=== PATIENT | female | born 1950 | race Caucasian/White ===

== ENCOUNTER 2017-05-15 19:28 | Inpatient (IN) | payer MEDICARE, MEDICAID ==
[~2017-05-15 19:28] MED LIST: ISOVUE-370 76%-LOCM 1 ML ONE
[2017-05-15 21:02] LABS: #Basophils 0.1 thou/uL (0.0-0.2); #Eosinphils 0.1 thou/uL (0.0-0.7); #Lymphocytes 3.5 thou/uL (1.20-3.40); #Monocytes 0.6 thou/uL (0.11-0.59); %Basophils 0.7 % (0.0-1.0); %Eosinophils 0.8 % (0.0-10.0); %Lymphocytes 31.4 % (21.0-51.0); %Monocytes 4.9 % (0.0-10.0); Hematocrit 40.9 % (36.0-47.0); Red Blood Cell (RBC) Count 4.51 mill/uL (4.20-5.40); White Blood Cell (WBC) Count 11.3 thou/uL (4.8-10.8)
[2017-05-15 21:09] LABS: Bilirubin Negative (Negative); Blood, Urine Negative (Negative); Glucose, Urine (Dipstick) Negative (Negative); Ketone, Urine Negative (Negative); Nitrite Negative (Negative); Protein, Urine (Dipstick) Negative (Neg-Trace); Urobilinogen 0.2 mg/dL (0.2-1.0)
[2017-05-15 21:09] LABS: PTT 27.8 SEC (22.9-36.1); Prothrombin Time 13.3 SEC (12.0-14.7)
[2017-05-15 21:11] LABS: Bacteria/HPF None Seen HPF (None Seen); Hyaline Casts/LPF 0-3 HYALINE CAST LPF (0-3 Hyaline); RBC/HPF None Seen HPF (0-3); Squamous Epithelial 0-3 HPF (0-3); WBC/HPF 0-3 HPF (0-3)
[2017-05-15 21:18] LABS: Lactic Acid - Sepsis 1.1 mmol/L (0.5-2.2)
[2017-05-15 21:22] LABS: Acetaminophen Less than 6.0 mcg/mL (10.0-30.0); Salicylate Less than 8.0 mg/dL (15.0-30.0)
[2017-05-15 21:24] LABS: ALT (SGPT) 16 U/L (8-55); AST (SGOT) 20 U/L (5-34); Alkaline Phosphatase 93 U/L (40-150); Anion Gap 12 mmol/L (10-20); BUN (Urea Nitrogen) 12 mg/dL (9.8-20.1); Bilirubin, Total 0.3 mg/dL (0.2-1.2); Calc. Creatinine Clearance 0 mL/min (70-130); Calcium 9.7 mg/dL (7.8-10.44); Carbon Dioxide 26 mmol/L (23-31); Chloride 106 mmol/L (98-107); Estimated GFR-MDRD 65; Globulin 3.4 g/dL (2.4-3.5); Protein, Total 7.4 g/dL (6.0-8.3)
[2017-05-15 21:24] LABS: Amphetamine Not Detected (NotDetected); Methadone Not Detected (NotDetected); Methamphetamine Not Detected (NotDetected)
[2017-05-15 21:28] LABS: Troponin I 0.011 ng/mL (< 0.028)
--- NOTE | 2017-05-15 22:37 | CT ---
CT ANGIOGRAM BRAIN WITH IV CONTRAST AND 3D MIP RECONSTRUCTIONS CT PERFUSION 05/15/17 PROVIDED CLINICAL HISTORY: Left sided facial numbness and aphasia. FINDINGS: There is no evidence for focal vessel stenoses, branch occlusion or aneurysm. There is a somewhat [place] of vessels in the terminal aspects of the left MCA distribution. However, the perfusion images a ppear normal. There is no evidence on the perfusion study. IMPRESSION: 1. No evidence for focal vessel stenosis or branch occlusion involving the proximal aspects of t he intracranial arterial structures. 2. No CT perfusion abnormality to suggest a territorial area of ischemia or infarction. POS: [facility]
[2017-05-15] MEDS ORDERED: Ondansetron HCl/PF 4 MG/2 ML Vial IVP PRN (23:52)
[2017-05-15] MEDS ORDERED: Ondansetron ODT 4 MG TAB SL PRN (23:52)
[2017-05-15] MEDS ORDERED: Acetaminophen 325 MG TAB PO PRN (23:52)
[2017-05-16] MEDS ORDERED: Acetaminophen 650 MG Suppository PR PRN (02:21)
[2017-05-16] MEDS ORDERED: Bisacodyl 5 MG TAB PO PRN (02:21)
[2017-05-16] MEDS ORDERED: Acetaminophen 325 MG TAB PO PRN (02:21)
[2017-05-16] MEDS ORDERED: niCARdipine 20MG in NaCl 200 ML BAG IVPB PRN (02:23)
[2017-05-16] MEDS ORDERED: Labetalol HCl 100 MG/20 ML VIAL SLOW IVP PRN (02:23)
[2017-05-16] MEDS ORDERED: niCARdipine HCl 25 MG in Sodium Chloride 0.9% 250 ML 240 ML IVPB PRN (02:41)
--- NOTE | 2017-05-16 03:23 | HP ---
PRIMARY CARE PHYSICIAN: Dr. Lu Sanchez. CHIEF COMPLAINT: Weakness. HISTORY OF PRESENT ILLNESS: Ms. Coughlin is a pleasant 67-year-old lady, who was seen at [facility] on 05/16/2017. She is currently aphasic, unable to provide any history or review of systems. History was obtained f rom review of the medical record as well as from discussion with emergency room physician. She was with family member at [facility] at 1715 hours yesterday. At that time, she developed left-side d facial numbness. Her speech also changed, and the family member was unable to understand what the patient was saying. She was taken to the emergency room at [facility]. She did not receive tPA th [facility] because it was felt that there was no clear diagnosis of stroke. She was subsequently transferre d to [facility]. She was found to have left upper extremity weakness as well as aphasia. She will receive tPA. She continues to be aphasic, but is now able to move her left upp er extremity. REVIEW OF SYSTEMS: Could not be completed because patient is unable to speak. PAST MEDICAL HISTORY: Significant for coronary artery disease, myocardial infarction, hypertension, anxiety, depression, and obstructive sleep apnea syndrome. PAST SURGICAL HISTORY: Significant for coronary artery bypass graft in 1996, coronary stent in 2003, hysterectomy, and sessile polyps on colonoscopy in 06/2015. ALLERGIES: No known drug allergies. SOCIAL HISTORY: She lives with family. No history of tobacco use, alcohol use, or recreational drug use. FAMILY HISTORY: Her father from prostate cancer. Mother from Alzheimer's disease. CURRENT MEDICATIONS: These need to be clarified. CODE STATUS: I discussed the code status with her son. He will discuss with rest of the family and let the medical team know. He knows that she is presumed FULL CODE at this time. PHYSICAL EXAMINATION: GENERAL: Ms. Coughlin is sleepy, but arousable, not in acute distress. VITAL SIGNS: Blood pressure is 151/68, pulse is 87. She is breathing at rate of 20 and saturating 9 7% on room air. She is afebrile. EYES: No scleral icterus. No conjunctival pallor. ENT: Moist mucosal membranes, no oropharyngeal erythema or exudates. NECK: Supple, nontender, normal range of movement, trachea is midline. RESPIRATORY: Accessory muscles of breathing are not active. Chest wall movements are symmetric bila terally. Lungs are clear to auscultation without wheeze, rhonchi, or crepitations. CARDIOVASCULAR: S1 and S2 are heard, regular. Peripheral pulses are palpable. No carotid bruit, no pericardial rub. ABDOMEN: Soft, nontender, bowel sounds heard, no hepatomegaly, no splenomegaly. NEUROLOGIC: She has a mild left facial droop. Power is 4+/5 in all 4 extremities. Pupils are equal and reactive bilaterally to light. Deep tendon reflexes are 2+. Plantar reflexes downgoing bilater ally. MUSCULOSKELETAL: Power in the four extremities 4+/5. SKIN: No rashes or subcutaneous nodules. PSYCHIATRIC: Normal mood, the patient is oriented to person, unable to assess orientation to place o r time. LYMPHATIC: No cervical lymphadenopathy. LABORATORY DATA: Ms. Coughlin's labs and investigations were reviewed. I reviewed her electrocardiogra m, which shows normal sinus rhythm, no ST changes to suggest an acute coronary syndrome. I also revi ewed her chest x-ray, which does not show any pulmonary infiltrates. CT scan of the brain done witho ut contrast did not reveal any evidence of intracranial hemorrhage or mass effect. CT angiogram of t head and neck with brain perfusion did not reveal any evidence for focal vessel stenosis or branch occlusion involving the proximal aspects of the intracranial arterial structures. There was no CT p erfusion abnormality to suggest a territorial area of ischemia or infarction. Laboratory investigati on showed leukocytosis with 11,300 white cells, of which 62.3% are neutrophils, normal hemoglobin, no rmal platelet count, INR 1.0, normal comprehensive metabolic profile, normal troponin I, urinalysis t hat is positive for trace leukocyte esterase and urine toxicology screen that is unremarkable. ASSESSMENT AND PLAN: Ms. Coughlin is a pleasant 67-year-old lady, who was seen at [facility] on 05/16/2017. Her problem list includes: 1. Acute ischemic cerebrovascular accident. She presented clinically with ischemic cerebrovascular accident. She has received tPA, with improvement of some of her symptoms. However, she continues to be aphasic. She will be monitored in the critical care unit for now. Neurology service will be con sulted. MRI of the brain, 2D echocardiogram are being ordered. I will start aspirin 24 hours after tPA administration. 2. Hypertension: We will start patient on p.r.n. Cardene drip as well as p.r.n. labetalol. 3. Coronary artery disease: Appears to be stable. 4. Obstructive sleep apnea syndrome: Appears to be stable. Many thanks for allowing me to participate in your patient's care. Please feel free to contact me wi th any questions or concerns. LEVEL OF RISK: High. LEVEL OF COMPLEXITY: High.
[2017-05-16] MEDS ORDERED: Acetaminophen 1,000 MG in Premix Bag 1 BAG IVPB SCH (03:30)
[2017-05-16] MEDS ORDERED: levETIRAcetam In NaCl (Iso-Os) 1,500 MG in Premix Bag 1 BAG IVPB SCH ×2 (08:45)
[2017-05-16] MEDS ORDERED: FLU VACC TS2017-18 (>65YR) 0.5 ML SYRINGE IM ONE (09:00)
--- NOTE | 2017-05-16 09:10 | CON ---
DATE OF CONSULTATION: 05/16/2017 CONSULTING PHYSICIAN: Hospitalist Service IMPRESSION: Speech arrest secondary to either ischemic event or subclinical seizure activity. PLAN: 1. MRI of the brain. 2. Keppra 1500 mg IV load. Ms. Coughlin is a 67-year-old female with a past history of coronary disease, hypertension, CHF, myocard ial infarction, dyslipidemia, and sleep apnea who presented with difficulty speaking. She had a CTA which did not reveal any evidence of perfusion defect or major vessel occlusion. She was given t-PA last night, her symptoms have persisted. PAST MEDICAL HISTORY: As listed above. ALLERGIES: None. SOCIAL HISTORY: Unknown. FAMILY HISTORY: Unknown. REVIEW OF SYSTEMS: Not obtainable. PHYSICAL EXAMINATION: GENERAL: She is a slightly overweight, elderly lady lying in bed in no distress. VITAL SIGNS: Blood pressure 112/46, pulse 86, saturations 100%. HEENT: Pupils equal and reactive. Conjunctivae clear. Oropharynx clear. NECK: Supple. EXTREMITIES: No cyanosis. NEUROLOGIC: She appears to be awake and attentive to what is going on around her, but she does not s peak whatsoever. She would follow some commands partially. Cranial nerve exam did not show any faci al asymmetry. Motor exam showed antigravity strength in both arms. The tone appeared to be symmetri c on both sides. Plantar responses were downgoing. Gait was not testable. No abnormal movements we re seen. LABORATORY STUDIES: Unremarkable CBC, coags, serum chemistry, urinalysis and toxicology screen. IMAGING: Imaging was reviewed. SUMMARY: A 67-year-old woman who presents with speech arrest and nothing focal on exam. We will see what further imaging reveals.
--- NOTE | 2017-05-16 10:33 | MRI ---
MRI BRAIN WITHOUT CONTRAST: Date: 05/16/17 HISTORY: Left-sided facial numbness. FINDINGS: Correlation is made with the CT and CTA of previous day. No restricted diffusion is seen. There are a few foci of T2 prolongation in the periventricular white matter consistent with mild chronic small vessel ischemic disease. No evidence of infarction, hemorr pradip, or midline shift is seen. The ventricular size is appropriate and the basilar cisterns are dick nt. There is mucosal disease in the paranasal sinuses. IMPRESSION: No evidence of acute intracranial process. POS: [facility]
[2017-05-16] MEDS: Dextrose 5 %-0.45 % NaCl 1,000 ML IV SCH ×2 (12:42→20:37)
--- NOTE | 2017-05-16 13:51 | PDOC.PN ---
- Subjective Encounter Start Date: 05/16/17 Encounter Start Time: 13:49 Patient seen at bedside. No overnight events, no new complaints. Answering questions but slow to answer and follow commands. - Objective MAR Reviewed: Yes Vital Signs & Weight: Vital Signs (12 hours) Temp Pulse Pulse Pulse Resp BP BP 05/16/17 11:00 98.3 F 05/16/17 09:39 70 73 102/46 L 134/38 L 05/16/17 08:47 05/16/17 07:31 98.2 F 71 14 05/16/17 07:00 98.2 F 05/16/17 04:00 98.4 F Pulse Ox Pulse Ox Pulse Ox 05/16/17 11:00 05/16/17 09:39 100 100 05/16/17 08:47 98 05/16/17 07:31 99 05/16/17 07:00 05/16/17 04:00 Weight Admit Weight 209 lb Weight 209 lb 10.554 oz Most Recent Monitor Data Heart Rate from ECG 72 NIBP 121/46 NIBP BP-Mean 85 Respiration from ECG 15 SpO2 99 I&O: 05/15/17 05/16/17 05/17/17 06:59 06:59 06:59 Intake Total 115 100 Output Total 0 330 Balance 115 -230 Result Diagrams: 05/15/17 20:48 05/15/17 20:48 Phys Exam - Physical Examination Constitutional: NAD HEENT: PERRLA, moist MMs Neck: no nodes Respiratory: clear to auscultation bilateral Cardiovascular: RRR Gastrointestinal: soft Musculoskeletal: pulses present muscle tone intact, no focal deficits, answers appropriately but slowly Psychiatric: A&O x 3 Dx/Plan (1) CVA (cerebral vascular accident) Code(s): I63.9 - CEREBRAL INFARCTION, UNSPECIFIED Status: Suspected Qualifiers: CVA mechanism: unspecified Qualified Code(s): I63.9 - Cerebral infarction, unspecified (2) Seizure Code(s): R56.9 - UNSPECIFIED CONVULSIONS Status: Suspected (3) Hyperlipidemia Code(s): E78.5 - HYPERLIPIDEMIA, UNSPECIFIED Status: Chronic (4) Hypertension Code(s): I10 - ESSENTIAL (PRIMARY) HYPERTENSION Status: Chronic (5) CAD (coronary artery disease) Code(s): I25.10 - ATHSCL HEART DISEASE OF [place] CORONARY ARTERY W/O ANG PCTRS Status: Chronic - Plan cont current plan of care, plan discussed w/ family, joe catheter, licensed master social worker, DVT proph w/SCDs * ASA MI once TPA window completed. * Appreciate neurology input ( Ren Loaded for possible subclinical seizure) * EEG (Await results) * Speech therapy evaluation * Supportive Care * Start IV fluids.
--- NOTE | 2017-05-16 21:33 | CON ---
DATE OF CONSULTATION: 05/16/2017 History: Ms. Coughlin is a 67-year-old female. She speaks very slowly, softly, and deliberately. I am told that by the interviews with the nursing staff that she was aphasic when she came in. Apparentl y, she was at [facility] yesterday afternoon and developed facial numbness, change in her speech. The f charlottey reported that they were unable to understand what she was saying. She was transferred to [facility]. It was felt that clinically, she most likely had had a c erebrovascular accident. She was given tPA. Imaging has not shown any evidence of thrombotic cerebr ovascular accident. She has got some mild chronic small vessel ischemic changes on her MRI, but nothing else that was pat hologically abnormal. She had a CTA with brain perfusion that did not show any obstruction. She was admitted to the Critical Care Unit. She is spontaneously moving all of her extremities now a nd weakly following commands also slowly and weakly answering questions. She has no past history of seizure disorder, mental illness. She denies having febrile illness leading up to this. There was no fever when reported here. PAST MEDICAL HISTORY: Remarkable for coronary artery disease, myocardial infarction, anxiety, depres rodri, hypertension, sleep apnea, history of coronary artery bypass grafting 20 years ago, history of coronary stenting in 2003, history of a hysterectomy, and a polypectomy in the past. SOCIAL HISTORY: Non-smoker. Non-drinker. She does not use drugs. ALLERGIES: She has no allergies. FAMILY HISTORY: Positive for cancer and dementia. She has no history of lung disease at an early ag e. MEDICATIONS: Medications have been reviewed. She is currently receiving aspirin SC per day, IV flui ds, Keppra, nicardipine. She is not on DVT prophylaxis. REVIEW OF SYSTEMS: Not quickly obtainable from her report. Review of systems was otherwise negative per the nursing staff and family. PHYSICAL EXAMINATION: GENERAL: She is afebrile, heart rate 74, blood pressure 130/54, respiratory rate is in the teens. HEENT: Pupils are reactive. Sclerae are anicteric. She will slowly open her eyes. NECK: She will flex her neck and get her chin to her chest. She denies having neck pain with that. She has no cervical lymphadenopathy. LUNGS: Clear. HEART: Regular rhythm. She has a grade 1 to 2/6 systolic murmur. ABDOMEN: Soft and nontender. EXTREMITIES: Without asymmetry. She really does not cooperate well with the strength exam. She is supine in bed. LABORATORY DATA: White count 11.3, hemoglobin 13.5, platelets 248. Sodium 140, potassium 3.9, chloride 106, bicarbonate 26, BUN 12, creatinine 0.87, glucose 97, calcium is 9.7, bilirubin is normal. AST, ALT were normal. Alkaline phosphatase 93. Troponins 0.011. Alb umin is 4.0. IMPRESSION: Constellation of symptoms is not really suggestive of a structural brain abnormality or a thrombotic event. EEG was being done as I was finishing my exam. We will see what this shows. It is atypical for a seizure disorder. There is nothing to make me believe she has meningitis or encephalitis. She does not appear to be in any possible ingestion issues. I will be happy to follow with the other physicians caring for her while she is in the ICU. Critical care time 35 minutes. Greater than 50% of the time was consistent reviewing records in conf erring with staff that was available. There is no family available at this time.
[2017-05-17 04:07] LABS: #Basophils 0.1 thou/uL (0.0-0.2); #Eosinphils 0.2 thou/uL (0.0-0.7); #Lymphocytes 3.4 thou/uL (1.20-3.40); #Monocytes 0.6 thou/uL (0.11-0.59); #Neutrophils 4.2 thou/uL (1.40-6.50); %Basophils 0.9 % (0.0-1.0); %Eosinophils 2.5 % (0.0-10.0); %Lymphocytes 39.7 % (21.0-51.0); %Monocytes 6.9 % (0.0-10.0); Red Blood Cell (RBC) Count 4.13 mill/uL (4.20-5.40); White Blood Cell (WBC) Count 8.5 thou/uL (4.8-10.8)
[2017-05-17 04:30] LABS: Anion Gap 9 mmol/L (10-20); BUN (Urea Nitrogen) 10 mg/dL (9.8-20.1); Calc. Creatinine Clearance 108 mL/min (70-130); Calcium 9.2 mg/dL (7.8-10.44); Carbon Dioxide 28 mmol/L (23-31); Chloride 106 mmol/L (98-107); Cholesterol 141 mg/dl (< 200 Desired); Estimated GFR-MDRD 75; LDL Cholesterol, Calculated 79 mg/dL
[2017-05-17] MEDS: Dextrose 5 %-0.45 % NaCl 1,000 ML IV SCH ×3 (04:48→20:26)
[2017-05-17] MEDS: Aspirin 300 MG Suppository PR SCH (08:53)
[2017-05-17] MEDS ORDERED: Aspirin 325 mg Enteric Coated Tablet PO SCH (09:00)
--- NOTE | 2017-05-17 11:58 | CON ---
DATE OF CONSULTATION: 05/17/2017 HISTORY OF PRESENT ILLNESS: Ms. Coughlin had an uneventful night. She started speaking sometime yester day. She had an EEG done in the midst of her episode of aphasia which was unremarkable. Her MRI of the brain did not reveal any evidence of acute ischemic changes. She apparently has a history of apolinar rly significant depression. She has been through ECT in the past. This morning, she would talk in a whisper. Her exam was otherwise nonfocal. It appears that this was somatization event without any evidence of underlying pathology. Patient ca n be transferred out of the Intensive Care Unit and should probably have follow up with the psychiatr ist.
--- NOTE | 2017-05-17 13:45 | PRG ---
DATE OF SERVICE: 05/17/2017 SUBJECTIVE: Ms. Coughlin remains with stable vital signs. PHYSICAL EXAMINATION: VITAL SIGNS: She is afebrile. Heart rate is in the 90s, blood pressure 132/64, respiratory rate 18. EXTREMITIES: She moves all extremities to command. LUNGS: Clear. HEART: Regular rhythm. ABDOMEN: Soft. When I entered the room, she started out with very weak voice. As I interviewed her two boys, her vo ice got louder and louder. It turns out, Ms. Coughlin has had electroshock therapy in the 80s. She avelar s a long history of depression and very quickly told me she has been depressed her whole life. She a lso told me that if she had not had electroshock therapy, she would not be alive now. There are apparently some enormous stresses created by a daughter and she also takes care of a disabl ed son. The more I talked to the family, the more I feel that this is likely a conversion disorder. LABORATORY DATA: White count is 8.5, hemoglobin 12.5, platelets 228. Electrolytes are normal. I do not feel a lumbar puncture is indicated. I believe she can be transferred to a medical bed and begin ambulating.
--- NOTE | 2017-05-17 15:28 | PDOC.PN ---
- Subjective Encounter Start Date: 05/17/17 Encounter Start Time: 11:00 Pt seen for followup re: ischemic CVA. Awake, alert, sitting in chair. Answering questions. No chest pain or shortness of breath. Speaking in low voice. - Objective MAR Reviewed: Yes Vital Signs & Weight: Vital Signs (12 hours) Temp Pulse Resp BP Pulse Ox 05/17/17 13:12 97.3 F L 86 18 96 05/17/17 12:50 97.3 F L 86 18 165/77 H 96 05/17/17 11:00 98.6 F 05/17/17 07:39 98.5 F 68 17 98 05/17/17 07:00 98.5 F Weight Admit Weight 209 lb Weight 211 lb 6.773 oz Most Recent Monitor Data Heart Rate from ECG 79 NIBP 130/39 NIBP BP-Mean 65 Respiration from ECG 20 SpO2 100 I&O: 05/16/17 05/17/17 05/18/17 06:59 06:59 06:59 Intake Total 115 2041 360 Output Total 0 1835 565 Balance 115 206 -205 Result Diagrams: 05/17/17 03:22 05/17/17 03:22 Phys Exam - Physical Examination Obese HEENT: moist MMs Neck: supple Respiratory: clear to auscultation bilateral Cardiovascular: RRR Gastrointestinal: soft Neurological: moves all 4 limbs Psychiatric: normal affect Deviation from normal: oriented to person and place, not to time Skin: no rash Dx/Plan (1) Ischemic cerebrovascular accident (CVA) Code(s): I63.9 - CEREBRAL INFARCTION, UNSPECIFIED Status: Acute Comment: vs somatization (2) Hyperlipidemia Code(s): E78.5 - HYPERLIPIDEMIA, UNSPECIFIED Status: Chronic (3) Hypertension Code(s): I10 - ESSENTIAL (PRIMARY) HYPERTENSION Status: Chronic (4) CAD (coronary artery disease) Code(s): I25.10 - ATHSCL HEART DISEASE OF [place] CORONARY ARTERY W/O ANG PCTRS Status: Chronic - Plan PT/OT, out of bed/ambulate * . Ambulate pt. probable somatization event. monitor vital signs, titrate antihypertensives as needed. transfer to medical floor. Review of Systems - Review of Systems Respiratory: negative: Cough, Dry, Shortness of Breath, Hemoptysis, SOB with Excertion, Pleuritic Pain, Sputum, Wheezing Cardiovascular: negative: chest pain, palpitations, orthopnea, paroxysmal nocturnal dyspnea, edema, light headedness - Medications/Allergies Allergies/Adverse Reactions: Allergies Allergy/AdvReac Type Severity Reaction Status Date / Time No Known Drug Allergies Allergy Verified 05/16/17 01:17 Medications: Current Medications Acetaminophen (Tylenol) 650 mg MN Q4H PRN PRN Reason: Headache/Fever or Pain Last Admin: 05/16/17 12:46 Dose: 650 mg Acetaminophen (Tylenol) 650 mg PO Q4H PRN PRN Reason: Headache/Fever or Pain Aspirin (Aspirin) 300 mg MN DAILY [facility] Last Admin: 05/17/17 08:53 Dose: 300 mg Bisacodyl (Dulcolax) 10 mg PO DAILYPRN PRN PRN Reason: Constipation Dextrose/Sodium Chloride (D5 1/2 Ns) 1,000 mls @ 120 mls/hr IV .Q8H20M [facility] Last Admin: 05/17/17 13:31 Dose: 1,000 mls Labetalol HCl (Normodyne) 10 mg SLOW IVP Q2H PRN PRN Reason: SBP > 180
[2017-05-18] MEDS: Dextrose 5 %-0.45 % NaCl 1,000 ML IV SCH (05:10)
[2017-05-18 05:26] LABS: #Basophils 0.1 thou/uL (0.0-0.2); #Eosinphils 0.2 thou/uL (0.0-0.7); #Lymphocytes 3.5 thou/uL (1.20-3.40); #Monocytes 0.6 thou/uL (0.11-0.59); #Neutrophils 3.6 thou/uL (1.40-6.50); %Eosinophils 2.5 % (0.0-10.0); %Lymphocytes 44.2 % (21.0-51.0); %Monocytes 6.9 % (0.0-10.0); Hematocrit 38.1 % (36.0-47.0); Mean Platelet Volume 8.1 fL (7.4-10.4); Red Blood Cell (RBC) Count 4.12 mill/uL (4.20-5.40); White Blood Cell (WBC) Count 7.9 thou/uL (4.8-10.8)
[2017-05-18 05:45] LABS: Anion Gap 10 mmol/L (10-20); BUN (Urea Nitrogen) 6 mg/dL (9.8-20.1); Calc. Creatinine Clearance 120 mL/min (70-130); Calcium 8.8 mg/dL (7.8-10.44); Carbon Dioxide 23 mmol/L (23-31); Chloride 109 mmol/L (98-107); Estimated GFR-MDRD 82
[2017-05-18] MEDS: Aspirin 300 MG Suppository PR SCH (08:51)
[2017-05-18 10:03] VITALS: BMI 33.5
--- NOTE | 2017-05-18 14:08 | PDOC.PN ---
- Subjective Encounter Start Date: 05/18/17 Encounter Start Time: 10:20 Pt seen for followup re: weakness. Speaking in low voice, says she feels better. - Objective Vital Signs & Weight: Vital Signs (12 hours) Temp Pulse Resp BP Pulse Ox 05/18/17 11:33 98 F 67 16 126/73 95 05/18/17 08:00 98.2 F 72 16 05/18/17 07:39 98.2 F 72 16 153/75 H 95 05/18/17 04:00 97.6 F 66 16 131/76 95 Weight Admit Weight 209 lb Weight 214 lb 6.4 oz Most Recent Monitor Data Heart Rate from ECG 79 NIBP 130/39 NIBP BP-Mean 65 Respiration from ECG 20 SpO2 100 I&O: 05/17/17 05/18/17 05/19/17 06:59 06:59 06:59 Intake Total 2041 1418 Output Total 3156 8587 0161 Balance 621 -436 -0927 Result Diagrams: 05/18/17 04:31 05/18/17 04:31 Phys Exam - Physical Examination Obese HEENT: moist MMs, oral pharynx no lesions Neck: supple Respiratory: clear to auscultation bilateral Cardiovascular: RRR Gastrointestinal: soft Neurological: non-focal, moves all 4 limbs Psychiatric: normal affect Dx/Plan (1) Weakness Code(s): R53.1 - WEAKNESS Status: Acute (2) Hyperlipidemia Code(s): E78.5 - HYPERLIPIDEMIA, UNSPECIFIED Status: Chronic (3) Hypertension Code(s): I10 - ESSENTIAL (PRIMARY) HYPERTENSION Status: Chronic (4) CAD (coronary artery disease) Code(s): I25.10 - ATHSCL HEART DISEASE OF [place] CORONARY ARTERY W/O ANG PCTRS Status: Chronic (5) Ischemic cerebrovascular accident (CVA) Code(s): I63.9 - CEREBRAL INFARCTION, UNSPECIFIED Status: Ruled-out Comment : vs somatization - Plan PT/OT, out of bed/ambulate * . Ambulate patient. Ischemic CVA vs somatization. Rehab screen pending. Monitor vital signs, titrate antihypertensives as needed. Review of Systems - Review of Systems Constitutional: weakness. negative: fever, chills, sweats, malaise Cardiovascular: negative: chest pain, palpitations, orthopnea, paroxysmal nocturnal dyspnea, edema, light headedness, other Gastrointestinal: negative: Nausea, Vomiting, Abdominal Pain, Diarrhea, Constipation, Melena, Hematochezia Neurological: Weakness. negative: Numbness, Incoordination, Change in Speech, Confusion, Seizures - Medications/Allergies Allergies/Adverse Reactions: Allergies Allergy/AdvReac Type Severity Reaction Status Date / Time No Known Drug Allergies Allergy Verified 05/16/17 01:17 Medications: Current Medications Acetaminophen (Tylenol) 650 mg VA Q4H PRN PRN Reason: Headache/Fever or Pain Last Admin: 05/16/17 12:46 Dose: 650 mg Acetaminophen (Tylenol) 650 mg PO Q4H PRN PRN Reason: Headache/Fever or Pain Last Admin: 05/17/17 20:34 Dose: 650 mg Aspirin (Aspirin) 300 mg VA DAILY [facility] Last Admin: 05/18/17 08:51 Dose: 300 mg Bisacodyl (Dulcolax) 10 mg PO DAILYPRN PRN PRN Reason: Constipation Labetalol HCl (Normodyne) 10 mg SLOW IVP Q2H PRN PRN Reason: SBP > 180 Sodium Chloride (Flush - Normal Saline) 10 ml IVF Q12HR [facility] Sodium Chloride (Flush - Normal Saline) 10 ml IVF PRN PRN PRN Reason: Saline Flush
--- NOTE | 2017-05-18 21:10 | PRG ---
DATE OF SERVICE: 05/18/2017 SUBJECTIVE: Ms. Coughlin is very conversant today. The more I talked to her, the voice got worse the m ore she talked. So, she felt like she was getting old. She said that she was tired of taking care o f her son and she had been doing that for many, many years and is becoming increasingly difficult. S he is also tired of dealing with her daughter. Her two other sons, she says are very supportive and I have reminded her that she needs to be leaning on them for both emotional and direct support on the house. She says she feels she is severely depr essed, but she says she is also clearly not suicidal. She has been treated with Paxil in the past, but this gave her a bad headache. I started Zoloft yest erica. PHYSICAL EXAMINATION: VITAL SIGNS: On exam, her vital signs have been stable. She is afebrile, heart rates in the 60s. S he is in a regular rhythm, respiratory rate 17, blood pressure this morning was 131/76. Oximetry is 95 on room air. LUNGS: Clear. HEART: Regular rhythm. ABDOMEN: Soft and nontender. LABORATORY DATA: White count 7.9, hemoglobin 12.5, platelets 203. Electrolytes are normal. IMPRESSION: Conversion disorder, planning to increase her Zoloft. She would really truly benefit fr om being seen by psychiatrist, some point given her history of having electric shock therapy in the p ast and admitted depression. She will need to be followed closely by her primary care physician as well. I do not see any reason to keep her in the hospital.
[2017-05-19] MEDS: Aspirin 300 MG Suppository PR SCH (09:07)
[2017-05-19 10:21] VITALS: BP 134/76; TEMP 97.9
--- NOTE | 2017-05-19 10:45 | PDOC.PN ---
- Subjective Encounter Start Date: 05/19/17 Encounter Start Time: 10:43 Subjective: up in chair, conversational - Objective MAR Reviewed: Yes Vital Signs & Weight: Vital Signs (12 hours) Temp Pulse Resp BP Pulse Ox 05/19/17 08:00 97.9 F 92 18 134/76 97 Weight Admit Weight 209 lb Weight 209 lb 9.6 oz Most Recent Monitor Data Heart Rate from ECG 79 NIBP 130/39 NIBP BP-Mean 65 Respiration from ECG 20 SpO2 100 I&O: 05/18/17 05/19/17 05/20/17 06:59 06:59 06:59 Intake Total 1418 1100 Output Total 2315 1100 Balance -897 0 Result Diagrams: 05/18/17 04:31 05/18/17 04:31 Phys Exam - Physical Examination Constitutional: NAD Neck: no JVD Respiratory: clear to auscultation bilateral Cardiovascular: RRR, no significant murmur Gastrointestinal: soft, non-tender Musculoskeletal: no edema Neurological: non-focal Dx/Plan (1) Conversion disorder Code(s): F44.9 - DISSOCIATIVE AND CONVERSION DISORDER, UNSPECIFIED Status: Acute (2) Depression, major, severe recurrence Code(s): F33.2 - MAJOR DEPRESSV DISORDER, RECURRENT SEVERE W/O PSYCH FEATURES Status: Acute (3) Hyperlipidemia Code(s): E78.5 - HYPERLIPIDEMIA, UNSPECIFIED Status: Chronic Qualifiers: Hyperlipidemia type: pure hypercholesterolemia Qualified Code(s): E78.00 - Pure hypercholesterolemia, unspecified; E78.0 - Pure hypercholesterolemia (4) Hypertension Code(s): I10 - ESSENTIAL (PRIMARY) HYPERTENSION Status: Chronic Qualifiers: Hypertension type: essential hypertension Qualified Code(s): I10 - Essential (primary) hypertension (5) CAD (coronary artery disease) Code(s): I25.10 - ATHSCL HEART DISEASE OF [place] CORONARY ARTERY W/O ANG PCTRS Status: Chronic Qualifiers: Coronary Disease-Associated Artery/Lesion type: [place] artery [place] vs. transplanted heart: k[place] heart Associated angina: without angina Qualified Code(s): I25.10 - Atherosclerotic heart disease of [place] coronary artery without angina pectoris - Plan nonfocal neuro exam, unremarlable [employer] -: has been started on zoloft * .
--- NOTE | 2017-05-19 11:33 | DIS ---
DATE OF ADMISSION: 05/16/2017 DATE OF DISCHARGE: 05/19/2017 TRANSFER OF CARE PRIMARY CARE PROVIDER: Lu Sanchez M.D. DISCHARGE DISPOSITION: Home. FINAL DIAGNOSES: Conversion disorder, depression, severe hypertension, dyslipidemia, coronary artery disease, obstructive sleep apnea. DISCHARGE MEDICATIONS: New; Zoloft 50 mg a day, old Lasix 20 mg p.r.n., lisinopril 10 mg a day, meto prolol 25 mg a day, Symbicort 160/4.5 one puff b.i.d., Plavix 75 mg a day, aspirin 81 mg a day, amlod ipine 5 mg a day, and Zocor 40 mg a day. ALLERGIES: NONE. PENDING AT THE TIME OF DISCHARGE: Nothing. CODE STATUS: FULL. HOSPITAL COURSE: The patient referred to Hospitalist by [facility] if mentioned . Patient was admitted with weakness and decreased speech at [facility]. She was gaetano pected of having left upper extremity weakness. She received tPA. She was placed in the hospital. Echocardiogram revealed a normal EF. Head and neck CTA, no focal stenosis, no perfusion abnormality. MRI, no evidence of acute intracranial process seen by Dr. Juan Ornelas and Dr. Damien Huber. Diag nosis of conversion reaction was made. The patient has been started on Zoloft. Today, she is up and about, talking. I have had a long conversation with the son. She is desirous of taking her home. I have discussed Zoloft and making sure that if she is not able to take 1 pill a day, he is going to have someone with her there to give her medicines. Follow up is suggested with Dr. Sanchez in 1 [email or web address]. The patient has a history of depression with ECT . Medication is recommended, this should be r eferred to a psychiatrist as an outpatient.
--- NOTE | 2017-05-24 13:27 | EKG ---
Test Reason : Blood Pressure : / mmHG Vent. Rate : 091 BPM Atrial Rate : 091 BPM P-R Int : 114 ms QRS Dur : 084 ms QT Int : 392 ms P-R-T Axes : 061 -12 076 degrees QTc Int : 482 ms Normal sinus rhythm Normal ECG Confirmed by SANDRA ORDAZ ([id number]), clinical editor WERNER CERDA ([id number]) on 05/24/2017 1:27:22 PM Referred By: Confirmed By:SANDRA ORDAZ
== END 2017-05-19 13:03 | disposition home or self-care (01) | DRG 880 ==
LOC: ERS 19:28 → CCU 23:00 → T4-B 05-17 12:55
PROVIDERS: ADMIT Internal Medicine; ATTEND Internal Medicine
DX: F44.9 Dissociative and conversion disorder, unspecified (principal); F33.2 Major depressive disorder, recurrent severe without psychotic features; R47.01 Aphasia; J44.9 Chronic obstructive pulmonary disease, unspecified; I11.0 Hypertensive heart disease with heart failure; I50.9 Heart failure, unspecified; I25.10 Atherosclerotic heart disease of native coronary artery without angina pectoris; I25.2 Old myocardial infarction; F41.9 Anxiety disorder, unspecified; G47.33 Obstructive sleep apnea (adult) (pediatric); Z95.1 Presence of aortocoronary bypass graft; Z95.5 Presence of coronary angioplasty implant and graft; Z79.01 Long term (current) use of anticoagulants; Z79.82 Long term (current) use of aspirin; E78.00 Pure hypercholesterolemia, unspecified; Z87.891 Personal history of nicotine dependence
CPT/HCPCS: 0042T; 36415; 36416; 51701; 70496; 70551; 80048; 80061; 80306; 80307; 81003; 81015; 83605; 85025; 87086; 93005; 93306; 95816; 95819; 96365; 96376; A4216; A4353; G8978-GP-CN; G8979-GP-CK; G8987-GO-CM; G8988-GO-CK; G8996-GN-CK; G8996-GN-CM; G8997-GN-CJ; G8997-GN-CK; J0131; J1953; J2405; J2997

== ENCOUNTER 2018-04-24 09:09 | Outpatient (CLI) | payer MEDICARE, MEDICAID ==
[2018-04-24 11:02] LABS: #Basophils 0.1 thou/uL (0.0-0.2); #Eosinphils 0.2 thou/uL (0.0-0.7); #Lymphocytes 3.3 thou/uL (1.20-3.40); #Monocytes 0.6 thou/uL (0.11-0.59); #Neutrophils 4.3 thou/uL (1.40-6.50); %Basophils 1.2 % (0.0-1.0); %Eosinophils 1.9 % (0.0-10.0); %Lymphocytes 39.4 % (21.0-51.0); %Monocytes 7.2 % (0.0-10.0); %Neutrophils 50.4 % (42.0-75.0); Hemoglobin 13.2 g/dL (12.0-16.0); Mean Corpuscular HGB CONC 33.5 g/dL (32.0-36.0); Mean Corpuscular Hemoglobin 30.1 pg (27.0-31.0); Mean Platelet Volume 8.4 fL (7.4-10.4); Platelet Count 300 thou/uL (130-400); RBC Distribution Width 13.6 % (11.5-14.5); Red Blood Cell (RBC) Count 4.37 mill/uL (4.20-5.40); White Blood Cell (WBC) Count 8.5 thou/uL (4.8-10.8)
[2018-04-24 11:08] LABS: PTT 28.3 SEC (22.9-36.1); Prothrombin Time 13.5 SEC (12.0-14.7)
[2018-04-24 11:27] LABS: ALT (SGPT) 17 U/L (8-55); AST (SGOT) 25 U/L (5-34); Albumin 4.1 g/dL (3.4-4.8); Alkaline Phosphatase 89 U/L (40-150); Anion Gap 9 mmol/L (10-20); BUN (Urea Nitrogen) 15 mg/dL (9.8-20.1); Bilirubin, Total 0.3 mg/dL (0.2-1.2); Calc. Creatinine Clearance 0 mL/min (70-130); Calcium 9.8 mg/dL (7.8-10.44); Carbon Dioxide 26 mmol/L (23-31); Cardiac Risk 5.1 (Less than 4.5); Chloride 107 mmol/L (98-107); Cholesterol 179 mg/dl (< 200 Desired); Estimated GFR-MDRD 63; Globulin 3.6 g/dL (2.4-3.5); Glucose 94 mg/dL (80-115); HDL Cholesterol 35 mg/dL (>60 Neg Risk); LDL Cholesterol, Calculated 120 mg/dL; Potassium 4.2 mmol/L (3.5-5.1); Protein, Total 7.7 g/dL (6.0-8.3); Sodium 138 mmol/L (136-145); Triglycerides 122 mg/dL (Less than 150)
--- NOTE | 2018-04-24 22:43 | EKG ---
Test Reason : Blood Pressure : / mmHG Vent. Rate : 058 BPM Atrial Rate : 058 BPM P-R Int : 164 ms QRS Dur : 088 ms QT Int : 444 ms P-R-T Axes : 075 045 107 degrees QTc Int : 435 ms Sinus bradycardia T wave abnormality, consider lateral ischemia Abnormal ECG When compared with ECG of 15-MAY-2017 21:33, Vent. rate has decreased BY 33 BPM Questionable change in QRS axis Confirmed by ARIAS SOSA, SAguilar ([id number]) on 04/24/2018 10:42:44 PM Referred By: ALL Confirmed By:DR. Lucia BIANCHI MD
== END 2018-04-24 09:10 | disposition home or self-care (01) ==
LOC: LABBT 09:09
PROVIDERS: ATTEND Internal Medicine Cardiovascular Disease
DX: Z01.818 Encounter for other preprocedural examination (principal)
CPT/HCPCS: 80053; 80061; 85025; 85610; 85730; 93005; 93010

== ENCOUNTER 2018-04-27 06:34 | Day surgery (SDC) | payer MEDICARE, MEDICAID ==
[2018-04-24 09:19] VITALS: BMI 38.9
[2018-04-27] MEDS ORDERED: Diazepam 5 MG TAB ONE (06:40)
[2018-04-27] MEDS ORDERED: Lidocaine 1% (PF) 30 ML VIAL ONE (06:41)
[2018-04-27] MEDS ORDERED: Midazolam HCl 2 mg/2 ml Vial ONE (07:08)
[2018-04-27] MEDS ORDERED: Fentanyl 100 MCG/2 ML VIAL ONE (07:08)
[2018-04-27] MEDS ORDERED: Iopamidol 370 76% 100 ML VIAL ONE (11:07)
== END 2018-04-27 13:42 | disposition home or self-care (01) ==
LOC: CCL 06:34
PROVIDERS: ATTEND Internal Medicine Cardiovascular Disease
PROC: B2111ZZ Fluoroscopy of Multiple Coronary Arteries using Low Osmolar Contrast (ICD-10-PCS; principal; 2018-04-27)
PROC: 4A023N7 Measurement of Cardiac Sampling and Pressure, Left Heart, Percutaneous Approach (ICD-10-PCS; 2018-04-27)
DX: I25.110 Atherosclerotic heart disease of native coronary artery with unstable angina pectoris (principal); I10 Essential (primary) hypertension; M79.605 Pain in left leg; E78.5 Hyperlipidemia, unspecified; Z95.1 Presence of aortocoronary bypass graft; Z79.82 Long term (current) use of aspirin; Z79.899 Other long term (current) drug therapy
CPT/HCPCS: 76942; 93459; 99152; C1769; J1644; J2001; J2250; J3010

== ENCOUNTER 2019-12-23 08:10 | Inpatient (IN) | payer MEDICARE, MEDICAID, OTHER ==
--- NOTE | 2019-12-23 09:50 | PDOC.HHP ---
Hospitalist HPI - History of Present Illness CP ED Course: VITAL SIGNS [facility] Dec 23, 2019 06:51 ZACH Alston Ladonna BP: 154/55, Pulse: 76, Resp: 18, Temp: 97.8 (Tympanic), Pain: 6, O2 sat: 99 on ( Room Air), Time: 12/23/2019 06:51. VITAL SIGNS [facility] Dec 23, 2019 07:00 ZACH Alston Ladonna BP: 127/45, Pulse: 72, Resp: 20, O2 sat: 97 on (Room Air), Time: 12/23/2019 07: 00. VITAL SIGNS [facility] Dec 23, 2019 07:15 ZACH Alston Ladonna BP: 131/60, Pulse: 74, Resp: 20, Pain: 4, O2 sat: 97 on (Room Air), Time: 2019 07:15. VITAL SIGNS [facility] Dec 23, 2019 07:45 ZACH Alston Ladonna BP: 111/52, Pulse: 72, Resp: 18, O2 sat: 95 on (Room Air), Time: 12/23/2019 07: 45. VITAL SIGNS [facility] Dec 23, 2019 08:15 ZACH Alston Ladonna BP: 123/46, Pulse: 68, Resp: 20, O2 sat: 97 on (Room Air), Time: 12/23/2019 08: 15. VITAL SIGNS [facility] Dec 23, 2019 08:00 ZACH Alston Ladonna BP: 115/52, Pulse: 64, Resp: 14, Pain: 2, O2 sat: 97 on (Room Air), Time: 2019 08:00. VITAL SIGNS [facility] Dec 23, 2019 08:50 ZACH Alston Ladonna BP: 109/79, Pulse: 65, Resp: 20, Temp: 97.8, Pain: 2, O2 sat: 97, Time: 2019 08:50. MEDICATION ADMINISTRATION SUMMARY [facility] Dec 23, 2019 09:33 Drug Name Dose Ordered Route Status Time *Nitro Transdermal 1 inch Topical Given 07:33 12/23/2019 nitroglycerin sublingual 0.4 mg Sublingual Given 07:30 12/23/2019 aspirin oral 324 mg Oral Given 07:03 12/23/2019 nitroglycerin sublingual 0.4 mg Sublingual Given 07:03 12/23/2019 Hospitalist ROS - Medication Medications: CURRENT MEDICATIONS - per ER records - to be verified Aspirin Low Dose [facility] Dec 23, 2019 07:09 ZACH Alston, Arlene TABLET, DELAYED RELEASE (ENTERIC COATED) : Strength - 81 mg : ORAL Patient Dose: 81 mg Oral once a day (in the morning). metoprolol tartrate Oral [facility] Dec 23, 2019 07:09 ZACH Alston, Arlene TABLET : Strength - 50 mg : ORAL Patient Dose: 25 mg Oral 2 times a day. simvastatin [facility] Dec 23, 2019 07:09 ZACH Alston, Arlene TABLET : Strength - 20 mg : ORAL Patient Dose: 20 mg Oral once a day (at bedtime). Lasix oral Kaylee Dec 23, 2019 07:09 ZACH Alston, Arlene TABLET : Strength - 20 mg : ORAL Patient Dose: 1 tab(s) Oral once a day PRN.LEG SWELLING. lisinopril [facility] Dec 23, 2019 07:09 ZACH Alston, Arlene TABLET : Strength - 2.5 mg : ORAL Patient Dose: 5 mg Oral once a day. Ranexa [facility] Dec 23, 2019 07:10 ZACH Alston, Arlene tablet extended release 12 hr : Strength - 1,000 mg : ORAL Patient Dose: Oral 2 times a day. sertraline [facility] Dec 23, 2019 07:11 ZACH Alston Ladonna tablet : Strength - 100 mg : ORAL Patient Dose: Oral once a day (in the morning). potassium [facility] Dec 23, 2019 07:11 ZACH Alston Ladonna tablet : Strength - 99 mg : ORAL Patient Dose: Oral once a day (in the morning). loratadine [facility] Dec 23, 2019 07:11 ZACH Alston Ladonna capsule : Strength - 10 mg : ORAL Patient Dose: Oral once a day (in the morning). nitroglycerin transdermal Kaylee Dec 23, 2019 07:12 ZACH Alston Ladonna patch 24 hour : Strength - 0.4 mg/hour : TRANSDERMAL Patient Dose: Topical once a day (in the morning). Hospitalist History - Past Medical History Other Medical History: PAST MEDICAL HISTORY: CAD COPD HTN HLD CEDRIC Anxiety SURGICAL HISTORY: Cardiac Cath/Coronary stent CABG ALLERGIES: NKDA SOCIAL HISTORY: former tobacco user - Pt smoked X 25 years; pt quit in 1996 Lives at home, with family Full code. DPOA - none No alcohol or drugs. FAMILY HISTORY: Father with CAD. Hospitalist Results - Radiology Interpretation Chest x-ray Status: image reviewed by me Additional Comment: FINDINGS: There are no airspace densities, pulmonary edema, pneumothorax, or cardiomegaly. The lateral costophr enic angles are sharp. Signs of previous CABG. IMPRESSION: No acute cardiopulmonary findings.
--- NOTE | 2019-12-23 10:00 | PDOC.HHP ---
Hospitalist HPI - History of Present Illness Persistent CP History of Present Illness: Patient is a 69-year-old white female with coronary artery disease status post coronary artery bypass graft, hypertension and hyperlipidemia presented to the emergency room with above complaints. Chest discomfort has been ongoing for last 2 to 3 days. It is on and off. This morning the pain became severe and more or less constant. She rates the pain as moderate to severe in intensity radiating to her right shoulder. The pain gets worse with activity. The pain somewhat improves with rest. She did not try sublingual nitroglycerin. She also has associated diaphoresis, dizziness, nausea with some shortness of breath. She denies any orthopnea paroxysmal nocturnal dyspnea or lower extremity edema. Patient has chronic cough from COPD which is unchanged. No recent immobilization or travel reported. She continues to have pain at the at the time of my evaluation. ED Course: ED Course: VITAL SIGNS [facility] Dec 23, 2019 06:51 ZACH Alston Ladonna BP: 154/55, Pulse: 76, Resp: 18, Temp: 97.8 (Tympanic), Pain: 6, O2 sat: 99 on ( Room Air), Time: 12/23/2019 06:51. VITAL SIGNS [facility] Dec 23, 2019 07:00 ZACH Alston Ladonna BP: 127/45, Pulse: 72, Resp: 20, O2 sat: 97 on (Room Air), Time: 12/23/2019 07: 00. VITAL SIGNS [facility] Dec 23, 2019 07:15 ZACH Alston Ladonna BP: 131/60, Pulse: 74, Resp: 20, Pain: 4, O2 sat: 97 on (Room Air), Time: 2019 07:15. VITAL SIGNS Kaylee Dec 23, 2019 07:45 ZACH Alston Ladonna BP: 111/52, Pulse: 72, Resp: 18, O2 sat: 95 on (Room Air), Time: 12/23/2019 07: 45. VITAL SIGNS Kaylee Dec 23, 2019 08:15 ZACH Alston Ladonna BP: 123/46, Pulse: 68, Resp: 20, O2 sat: 97 on (Room Air), Time: 12/23/2019 08: 15. VITAL SIGNS [facility] Dec 23, 2019 08:00 ZACH Alston Ladonna BP: 115/52, Pulse: 64, Resp: 14, Pain: 2, O2 sat: 97 on (Room Air), Time: 2019 08:00. VITAL SIGNS [facility] Dec 23, 2019 08:50 ZACH Alston Ladonna BP: 109/79, Pulse: 65, Resp: 20, Temp: 97.8, Pain: 2, O2 sat: 97, Time: 2019 08:50. MEDICATION ADMINISTRATION SUMMARY [facility] Dec 23, 2019 09:33 Drug Name Dose Ordered Route Status Time *Nitro Transdermal 1 inch Topical Given 07:33 12/23/2019 nitroglycerin sublingual 0.4 mg Sublingual Given 07:30 12/23/2019 aspirin oral 324 mg Oral Given 07:03 12/23/2019 nitroglycerin sublingual 0.4 mg Sublingual Given 07:12/23/2019 Hospitalist ROS - Review of Systems Cardiovascular: reports: chest pain, light headedness. denies: palpitations, orthopnea, paroxysmal noc. dyspnea, edema, other Gastrointestinal: reports: nausea. denies: vomiting, abdominal pain, diarrhea, constipation, melena, hematochezia, other Genitourinary: denies: dysuria, frequency, incontinence, hematuria, retention, other Musculoskeletal: reports: other (Chronic left knee pain) All other systems reviewed; all pertinent +/- noted in HPI/Subj - Medication Medications: CURRENT MEDICATIONS - per ER records - to be verified Aspirin Low Dose [facility]lee Dec 23, 2019 07:09 ZACH Alston Ladonna TABLET, DELAYED RELEASE (ENTERIC COATED) : Strength - 81 mg : ORAL Patient Dose: 81 mg Oral once a day (in the morning). metoprolol tartrate Oral Kaylee Dec 23, 2019 07:09 ZACH Alston Ladonna TABLET : Strength - 50 mg : ORAL Patient Dose: 25 mg Oral 2 times a day. simvastatin [facility] Dec 23, 2019 07:09 ZACH Alston Ladonna TABLET : Strength - 20 mg : ORAL Patient Dose: 20 mg Oral once a day (at bedtime). Lasix oral FriDec 23, 2019 07:09 ZACH Alston Ladonna TABLET : Strength - 20 mg : ORAL Patient Dose: 1 tab(s) Oral once a day PRN.LEG SWELLING. lisinopril [facility] Dec 23, 2019 07:09 ZACH Alston Ladonna TABLET : Strength - 2.5 mg : ORAL Patient Dose: 5 mg Oral once a day. Ranexa [facility] Dec 23, 2019 07:10 ZACH Alston Ladonna tablet extended release 12 hr : Strength - 1,000 mg : ORAL Patient Dose: Oral 2 times a day. sertraline [facility] Dec 23, 2019 07:11 ZACH Alston Ladonna tablet : Strength - 100 mg : ORAL Patient Dose: Oral once a day (in the morning). potassium [facility] Dec 23, 2019 07:11 ZACH Alston, Arlene tablet : Strength - 99 mg : ORAL Patient Dose: Oral once a day (in the morning). loratadine [facility] Dec 23, 2019 07:11 ZACH Alston Ladonna capsule : Strength - 10 mg : ORAL Patient Dose: Oral once a day (in the morning). nitroglycerin transdermal [facility] Dec 23, 2019 07:12 ZACH Alston Ladonna patch 24 hour : Strength - 0.4 mg/hour : TRANSDERMAL Patient Dose: Topical once a day (in the morning). Hospitalist History - Past Medical History Other Medical History: PAST MEDICAL HISTORY: CAD COPD HTN HLD CEDRIC Anxiety SURGICAL HISTORY: Cardiac Cath/Coronary stent CABG ALLERGIES: NKDA SOCIAL HISTORY: former tobacco user - Pt smoked X 25 years; pt quit in 1996 Lives at home, with family Full code. DPOA - none No alcohol or drugs. FAMILY HISTORY: Father with CAD - Exam General Appearance: NAD, awake alert General - other findings: Moderate chest discomfort at this time Eye: PERRL, anicteric sclera ENT: normocephalic atraumatic, no oropharyngeal lesions Neck: supple, symmetric, no JVD, no thyromegaly Heart: RRR, no gallops, no rubs, normal peripheral pulses Heart - other findings: Healed midline scar from previous CABG Respiratory: no wheezes, no rales, no ronchi, normal chest expansion Gastrointestinal: soft, non-tender, non-distended, normal bowel sounds Extremities: no cyanosis, no clubbing, no edema Extremities - other findings: No calf tenderness. Radial pulses were palpable bilaterally and equal. Skin: normal turgor, no lesions Neurological: normal sensation to touch, no weakness, no focal deficits Musculoskeletal: normal tone, normal strength Psychiatric: normal affect, A&O x 3 Hospitalist Results - Labs Result Diagrams: 12/24/19 04:09 12/24/19 04:09 Lab results: Laboratory Tests 12/23/19 12/23/19 12/23/19 07:02 07:02 11:27 Hgb 12.1 Plt Count 273 Sodium 143 Potassium 3.7 Carbon Dioxide 25 BUN 13 Creatinine 0.86 Troponin I 0.028 - EKG Interpretation EKG: SR - NSST - reviewed by me - Radiology Interpretation Chest x-ray Status: image reviewed by me Additional Comment: FINDINGS: There are no airspace densities, pulmonary edema, pneumothorax, or cardiomegaly. The lateral costophr enic angles are sharp. Signs of previous CABG. IMPRESSION: No acute cardiopulmonary findings. Hospitalist H&P A/P - Plan Plan: Unstable angina causing persistent chest pain Coronary artery disease History of coronary stents History of coronary artery bypass grafting Hypertension Hyperlipidemia Obesity with a BMI 25.6 CKD stage II COPD Anxiety Degenerative joint disease CEDRIC Plan: Patient will be monitored in the telemetry unit Will continue aspirin along with clopidogrel and Ranexa Resume beta-blockers and statins Nitroglycerin patch Morphine as needed for chest pain Consult cardiology 1 mg/kg Lovenox Cardiac rehab Serial troponins Echocardiogram will be obtained Vitals every 4 hourly Recheck labs in a.m. Fasting lipid profile Resume home CPAP Patient understands above plan of care. She understands the risk associated with anticoagulation.
[2019-12-23] MEDS ORDERED: Senokot S 8.6-50 MG TAB PO PRN (10:01)
[2019-12-23] MEDS ORDERED: Clopidogrel Bisulfate 75 MG TAB PO SCH (10:30)
[2019-12-23 10:32] VITALS: BMI 35.6
[2019-12-23] MEDS ORDERED: Enoxaparin Sodium 100 MG/ML SYRINGE SC SCH (11:45)
[2019-12-23 11:59] LABS: Cardiac Risk 3.6 (Less than 4.5); Troponin I 0.028 ng/mL (< 0.028)
[2019-12-23] MEDS: Acetaminophen 325 MG TAB PO PRN (12:22)
[2019-12-23] MEDS ORDERED: Nitroglycerin 0.4 MG TAB (25 Tab Bottle) SL PRN (12:33)
[2019-12-23] MEDS ORDERED: Morphine 2 MG/ML VIAL SLOW IVP PRN (12:34)
--- NOTE | 2019-12-23 12:35 | CON ---
DATE OF CONSULTATION: 12/23/2019 [facility] MANAGER: Marvin Mendez MD REASON FOR CONSULTATION: Chest pain at rest. HISTORY OF PRESENT ILLNESS: Ms. Cuoghlin is a 69-year-old woman with history of coronary artery disease and previous bypass surgery and stenting. She has undergone cardiac catheterization on two different occasions relatively recently. In 2017, she underwent cardiac catheterization, again in 2018 in April as I will outline the findings as above. The patient has been having increasing amounts of chest pain and pressure about the last week or tightness in her chest. Finally, she went to the emergency room for increasing amounts of chest pain. Her troponin level was negative and her EKG was unremarkable. She was sent here for further therapy. Currently, she has a very vague discomfort in her chest and nothing nearly as bad as what she had previously. HOME MEDICATIONS: 1. Metoprolol tartrate 25 mg twice a day. 2. Plavix 75 mg a day. 3. Atorvastatin 20 mg a day. 4. Ranolazine 1000 mg twice a day. 5. Nitroglycerin if needed. 6. Lisinopril. 7. Furosemide. 8. Aspirin. ALLERGIES: NONE KNOWN. SOCIAL HISTORY: No tobacco. She said she quit 20 years ago. REVIEW OF SYSTEMS: CONSTITUTIONAL: No significant weight gain or loss. VISION: No changes. HEARING: No changes. PULMONARY: No cough or wheezing. GASTROINTESTINAL: No nausea, vomiting, or diarrhea. SKIN: No rashes. NEUROLOGIC: No unilateral weakness or numbness. PSYCHIATRIC: No unusual depression or anxiety. HEMATOLOGIC: No unusual bruising. GENITOURINARY: No burning with urination. PHYSICAL EXAMINATION: GENERAL: This is a pleasant 69-year-old woman, 5 feet and 4 inches tall, 207 pounds. HEENT: Eyes; sclerae nonicteric. Mouth, mucous membranes moist. NECK: Supple. No lymphadenopathy. LUNGS: Clear. CARDIAC: Normal S1. Normal S2. I do not hear murmur, rub, or gallop. Heart sounds somewhat distant. ABDOMEN: Soft and nontender. EXTREMITIES: Warm and dry. No clubbing. No cyanosis or edema. Peripheral pulses are present, but mildly diminished. Most recent cholesterol, LDL was 115. EKG showed no ischemic changes. Troponin levels were negative. I did review the cardiac catheterization films. The catheterization done in April 2018 , the patient has an occluded LAD. The stent that was previously placed had occluded. There is an atretic graft to the diagonal branch, but no graft to the LAD. Next circumflex, there is a lesion in the proximal circumflex, it looks to be 50% to 70% that supplies the distal portion of the circumflex that looks similar to the findings done in 2018. Right coronary is occluded. It has a patent graft, but there is diffuse atherosclerosis distal to graft, especially the posterolateral branch. Nothing could be done percutaneously to help that area that is certainly a very likely source of ischemia. Looking at the previous film, this seems unlikely. Percutaneous therapy will alleviate her pain. At this time, we will intensify medical therapy if she has refractory pain, ultimately repeat catheterization could be done to see if there is any further intervention feasible, but from looking at the films in 2018 that does not seem likely. Also looking at the films at that time repeat bypass surgery, looks like a suboptimal option. Intensive medical therapy should be the initial strategy at this point. Discussed with Dr. Mendez as well. He is in agreement with that. Job ID: [id number]
[2019-12-23] MEDS ORDERED: Metoprolol Tartrate 25 MG TAB PO SCH (13:00)
[2019-12-23 14:06] LABS: Troponin I 0.026 ng/mL (< 0.028)
[2019-12-23] MEDS: Nitroglycerin 2% Ointment 1 INCH/1 GM Packet TOP SCH (14:24)
[2019-12-23 17:49] LABS: SARS-CoV-2 MS2 Positive; SARS-CoV-2 N Gene Negative; SARS-CoV-2 S Gene Negative; SARS-CoV-2 by NAA Not Detected (NotDetected); SARS-CoV-2 orf1ab Negative
[2019-12-23] MEDS ORDERED: Enoxaparin Sodium 40 MG/0.4 ML SYRINGE SC SCH (21:00)
[2019-12-23] MEDS ORDERED: Famotidine/PF 20 mg/2ml Vial SLOW IVP SCH (21:00)
[2019-12-23] MEDS ORDERED: Famotidine 20 MG TAB PO SCH (21:00)
[2019-12-23] MEDS: Atorvastatin Calcium 10 MG TAB PO SCH (21:05)
[2019-12-23] MEDS: Famotidine 20 MG TAB PO SCH (21:05)
[2019-12-23] MEDS: Metoprolol Tartrate 25 MG TAB PO SCH (21:05)
[2019-12-23] MEDS: Enoxaparin Sodium 100 MG/ML SYRINGE SC SCH (21:05)
[2019-12-24] MEDS: Nitroglycerin 2% Ointment 1 INCH/1 GM Packet TOP SCH ×4 (00:31→20:27)
[2019-12-24 04:50] LABS: #Basophils 0.1 thou/uL (0.0-0.2); #Eosinphils 0.1 thou/uL (0.0-0.7); #Lymphocytes 3.4 thou/uL (1.20-3.40); #Monocytes 0.6 thou/uL (0.11-0.59); #Neutrophils 3.4 thou/uL (1.40-6.50); %Basophils 1.1 % (0.0-1.0); %Eosinophils 1.9 % (0.0-10.0); %Lymphocytes 44.8 % (21.0-51.0); %Monocytes 7.8 % (0.0-10.0); %Neutrophils 44.3 % (42.0-75.0); Hemoglobin 12.3 g/dL (12.0-16.0); Mean Corpuscular HGB CONC 32.3 g/dL (32.0-36.0); Mean Corpuscular Hemoglobin 31.2 pg (27.0-31.0); Mean Corpuscular Volume 96.6 fL (78.0-98.0); Platelet Count 234 thou/uL (130-400); RBC Distribution Width 12.3 % (11.5-14.5); Red Blood Cell (RBC) Count 3.93 mill/uL (4.20-5.40); White Blood Cell (WBC) Count 7.6 thou/uL (4.8-10.8)
[2019-12-24 05:10] LABS: Anion Gap 12 mmol/L (10-20); BUN (Urea Nitrogen) 12 mg/dL (9.8-20.1); Calc. Creatinine Clearance 100 mL/min (70-130); Calcium 9.2 mg/dL (7.8-10.44); Carbon Dioxide 28 mmol/L (23-31); Chloride 106 mmol/L (98-107); Estimated GFR-MDRD 71; Glucose 93 mg/dL (80-115); Potassium 4.1 mmol/L (3.5-5.1); Sodium 142 mmol/L (136-145)
[2019-12-24 05:15] LABS: Troponin I 0.011 ng/mL (< 0.028)
[2019-12-24] MEDS: Enoxaparin Sodium 100 MG/ML SYRINGE SC SCH ×2 (08:46→20:27)
[2019-12-24] MEDS: Clopidogrel Bisulfate 75 MG TAB PO SCH (08:47)
[2019-12-24] MEDS: Famotidine 20 MG TAB PO SCH ×2 (08:47→20:27)
[2019-12-24] MEDS: Acetaminophen 325 MG TAB PO PRN ×2 (08:47→15:23)
[2019-12-24] MEDS: Aspirin 81 mg Enteric Coated Tablet PO SCH (08:47)
[2019-12-24] MEDS: Metoprolol Tartrate 25 MG TAB PO SCH ×2 (08:47→20:27)
--- NOTE | 2019-12-24 14:02 | PRG ---
DATE OF SERVICE: 12/24/2019 SUBJECTIVE: Ms. Coughlin states she is doing better today. She is not having any further chest pain. OBJECTIVE: VITAL SIGNS: Her blood pressure 154/69, pulse 60 and sinus. LUNGS: Clear. CARDIAC: Normal S1, normal S2. ABDOMEN: Soft, nontender. EXTREMITIES: There is no edema. ASSESSMENT: 1. Angina, improved. 2. Hypertension. PLAN: 1. She is on nitrates in addition to her previous home medicine. 2. She is on Lovenox. We will stop that after midnight if she is doing okay; following that, could probably be released home in the morning to follow up with Dr. Mendez as an outpatient. Job ID: [id number]
--- NOTE | 2019-12-24 17:04 | PDOC.HOSPP ---
- Subjective Encounter Date: 12/24/19 Encounter Time: 15:00 Subjective: Patient seen and examined for unstable angina. Chest discomfort has resolved. No palpitations, syncope, nausea, vomiting or diaphoresis reported. - Objective Vital Signs & Weight: Vital Signs (12 hours) Temp Pulse Resp BP Pulse Ox 12/24/19 15:18 97.5 F L 63 14 145/61 H 96 12/24/19 11:23 97.8 F 57 L 14 154/69 H 97 12/24/19 10:02 97 12/24/19 07:29 97.5 F L 66 12 160/71 H 97 Weight Admit Weight 207 lb 9.6 oz Weight 207 lb 9.6 oz I&O: 12/23/19 12/24/19 12/25/19 06:59 06:59 06:59 Intake Total 480 Output Total 750 Balance -270 Result Diagrams: 12/24/19 04:09 12/24/19 04:09 Additional Labs: Laboratory Tests 12/23/19 12/23/19 12/24/19 11:27 13:31 04:09 Troponin I 0.026 0.011 Cholesterol 153 LDL Cholesterol, Calc 90 Radiology Reviewed by me: Yes (Chest x-ray no infiltrate) EKG Reviewed by me: Yes (Sinus rhythm) Hospitalist ROS - Review of Systems Cardiovascular: denies: chest pain, palpitations, orthopnea, paroxysmal noc. dyspnea, edema, light headedness, other Gastrointestinal: denies: nausea, vomiting, abdominal pain, diarrhea, constipation, melena, hematochezia, other All other systems reviewed; all pertinent +/- noted in HPI/Subj - Medication Medications: Active Medications Generic Name Dose Route Start Last Admin Trade Name Freq PRN Reason Stop Dose Admin Acetaminophen 650 mg 12/23/19 10:01 12/24/19 15:23 Tylenol PO 650 mg Q4H PRN Administration Headache/Fever/Mild Pain (1-3) Aspirin 81 mg 12/24/19 09:00 12/24/19 08:47 Ecotrin PO 81 mg DAILY KINA Administration Atorvastatin Calcium 10 mg 12/23/19 21:00 12/23/19 21:05 Lipitor PO 10 mg HS KINA Administration Clopidogrel Bisulfate 75 mg 12/24/19 09:00 12/24/19 08:47 Plavix PO 75 mg DAILY KINA Administration Enoxaparin Sodium 100 mg 12/23/19 21:00 12/24/19 08:46 Lovenox SC 12/24/19 23:59 100 mg 0900,2100 KINA Administration Famotidine 20 mg 12/23/19 21:00 12/24/19 08:47 Pepcid PO 20 mg BID KINA Administration Metoprolol Tartrate 25 mg 12/23/19 21:00 12/24/19 08:47 Lopressor PO 25 mg BID KINA Administration Nitroglycerin 1 inch 12/23/19 14:00 12/24/19 14:43 Nitro-Bid 2% Ointment TOP Not Given Q8HR KINA Ranolazine 1,000 mg 12/23/19 21:00 12/24/19 08:47 Ranexa PO 1,000 mg BID KINA Administration Sertraline HCl 100 mg 12/24/19 09:00 12/24/19 08:47 Zoloft PO 100 mg DAILY KINA Administration - Exam General Appearance: NAD Neck: supple, symmetric, no JVD Heart: RRR, no gallops, no rubs, normal peripheral pulses Respiratory: no wheezes, no ronchi, normal chest expansion, no tachypnea Gastrointestinal: non-tender, non-distended, normal bowel sounds, no guarding, no rigidity Extremities: no cyanosis, no clubbing Neurological: no new deficit Psychiatric: normal affect, A&O x 3 Hosp A/P - Plan DVT proph w/lovenox Unstable angina causing persistent chest pain Coronary artery disease History of coronary stents History of coronary artery bypass grafting Hypertension Hyperlipidemia Obesity with a BMI 25.6 CKD stage II COPD Anxiety Degenerative joint disease CEDIRC Plan: 12/23 Continue Nitropatch with aspirin, clopidogrel, Ranexa, beta-blockers and statins Continue Lovenox 1 mg/kg. Continue other medications as above. Discharge home in 1 to 2 days if okay with cardiology. Recheck labs in a.m. 12/22 Patient will be monitored in the telemetry unit Will continue aspirin along with clopidogrel and Ranexa Resume beta-blockers and statins Nitroglycerin patch Morphine as needed for chest pain Consult cardiology 1 mg/kg Lovenox Cardiac rehab Serial troponins Vitals every 4 hourly Recheck labs in a.m. Fasting lipid profile Resume home CPAP
[2019-12-24] MEDS: Atorvastatin Calcium 10 MG TAB PO SCH (20:27)
[2019-12-25] MEDS: Acetaminophen 325 MG TAB PO PRN (01:18)
[2019-12-25 04:32] LABS: #Basophils 0.1 thou/uL (0.0-0.2); #Eosinphils 0.2 thou/uL (0.0-0.7); #Lymphocytes 3.8 thou/uL (1.20-3.40); #Monocytes 0.6 thou/uL (0.11-0.59); #Neutrophils 3.7 thou/uL (1.40-6.50); %Basophils 0.7 % (0.0-1.0); %Eosinophils 2.3 % (0.0-10.0); %Lymphocytes 45.9 % (21.0-51.0); %Monocytes 7.5 % (0.0-10.0); %Neutrophils 43.6 % (42.0-75.0); Hemoglobin 12.8 g/dL (12.0-16.0); Mean Corpuscular HGB CONC 34.3 g/dL (32.0-36.0); Mean Corpuscular Hemoglobin 33.3 pg (27.0-31.0); Mean Corpuscular Volume 97.1 fL (78.0-98.0); Mean Platelet Volume 7.6 fL (7.4-10.4); Platelet Count 228 thou/uL (130-400); RBC Distribution Width 12.2 % (11.5-14.5); Red Blood Cell (RBC) Count 3.84 mill/uL (4.20-5.40); White Blood Cell (WBC) Count 8.4 thou/uL (4.8-10.8)
[2019-12-25 04:55] LABS: Anion Gap 10 mmol/L (10-20); BUN (Urea Nitrogen) 15 mg/dL (9.8-20.1); Calc. Creatinine Clearance 98 mL/min (70-130); Carbon Dioxide 26 mmol/L (23-31); Chloride 107 mmol/L (98-107); Estimated GFR-MDRD 69; Glucose 89 mg/dL (80-115); Potassium 4.2 mmol/L (3.5-5.1); Sodium 139 mmol/L (136-145)
[2019-12-25] MEDS: Nitroglycerin 2% Ointment 1 INCH/1 GM Packet TOP SCH ×2 (05:38→14:28)
[2019-12-25] MEDS: Metoprolol Tartrate 25 MG TAB PO SCH (08:38)
[2019-12-25] MEDS: Clopidogrel Bisulfate 75 MG TAB PO SCH (08:38)
[2019-12-25] MEDS: Famotidine 20 MG TAB PO SCH (08:38)
[2019-12-25] MEDS: Aspirin 81 mg Enteric Coated Tablet PO SCH (08:38)
[2019-12-25 12:12] VITALS: BP 146/63; TEMP 97.8
--- NOTE | 2019-12-25 15:50 | DIS ---
DATE OF ADMISSION: 12/23/2019 DATE OF DISCHARGE: 12/25/2019 DISCHARGE DISPOSITION: Home. FOLLOWUP: 1. Follow up with Dr. Mendez in 2 weeks. 2. Follow up with Dr. Sanchez in 1 week. The patient was seen and examined on the day of discharge. Denies any new complaints. No chest pain, shortness of breath, or palpitations reported. BRIEF HOSPITAL COURSE: The patient is a 69-year-old female with coronary artery disease, status post coronary artery bypass grafting, presented to the emergency room with persistent chest discomfort. Workup was consistent with unstable angina. Her troponins remained negative. The patient was started on 1 mg/kg of Lovenox along with nitroglycerin patch. Beta blockers, statin, aspirin, Plavix, and Ranexa were resumed. The patient was evaluated by Cardiology, Dr. Joseph, who was covering for Dr. Mendez. She was kept on subcu Lovenox for 48 hours. Chest discomfort has resolved. Lovenox has been discontinued. The patient will be discharged later today if okay with Cardiology. Sublingual nitroglycerin prescription was sent to the pharmacy. All other medications were left unchanged. FINAL DIAGNOSES: 1. Unstable angina, causing persistent chest pain. 2. Coronary artery disease, status post stents and coronary artery bypass grafting. 3. Hypertension. 4. Hyperlipidemia. 5. Obesity with a BMI 35.6. 6. Chronic kidney disease, stage 2. 7. Chronic obstructive pulmonary disease. 8. Anxiety. 9. Degenerative joint disease. 10. Obstructive sleep apnea. The patient understands the above plan of care. Job ID: [id number]
--- NOTE | 2019-12-25 16:17 | PDOC.CPN ---
- Subjective Date: 12/25/19 Time: 16:16 Interval history: She is doing better. No more chest pain since adjusting meds. - Review of Systems General: denies: fever/chills, weight/appetite/sleep changes, night sweats, fatigue Respiratory: denies: cough, congestion, shortness of breath, exercise intolerance Cardiovascular: denies: chest pain, palpitation, edema, paroxysmal nocturnal dyspnea, orthopnea Gastrointestinal: denies: nausea, vomiting, diarrhea, constipation, abd pain, GI bleeding Musculoskeletal: denies: pain, tenderness, stiffness, swelling, arthritis/ arthralgias Neurological: denies: numbness, syncope, seizure, weakness - Objective Allergies/Adverse Reactions: Allergies Allergy/AdvReac Type Severity Reaction Status Date / Time No Known Drug Allergies Allergy Verified 04/24/18 09:20 Visit Medications: Current Medications Acetaminophen (Tylenol) 650 mg PO Q4H PRN PRN Reason: Headache/Fever/Mild Pain (1-3) Last Admin: 12/25/19 01:18 Dose: 650 mg Albuterol/Ipratropium (Duoneb) 3 ml NEB L0DM-DN PRN PRN Reason: SOB &/or Wheezing Aspirin (Ecotrin) 81 mg PO DAILY [facility] Last Admin: 12/25/19 08:38 Dose: 81 mg Atorvastatin Calcium (Lipitor) 10 mg PO HS [facility] Last Admin: 12/24/19 20:27 Dose: 10 mg Clopidogrel Bisulfate (Plavix) 75 mg PO DAILY [facility] Last Admin: 12/25/19 08:38 Dose: 75 mg Famotidine (Pepcid) 20 mg PO BID [facility] Last Admin: 12/25/19 08:38 Dose: 20 mg Metoprolol Tartrate (Lopressor) 25 mg PO BID [facility] Last Admin: 12/25/19 08:38 Dose: 25 mg Morphine Sulfate (Morphine) 2 mg SLOW IVP Q5MIN PRN PRN Reason: Chest Pain Nitroglycerin (Nitro-Bid 2% Ointment) 1 inch TOP Q8HR [facility] Last Admin: 12/25/19 14:28 Dose: Not Given Nitroglycerin (Nitrostat) 0.4 mg SL Q5MIN PRN PRN Reason: Chest Pain Ranolazine (Ranexa) 1,000 mg PO BID [facility] Last Admin: 12/25/19 08:38 Dose: 1,000 mg Senna/Docusate Sodium (Senokot S) 2 tab PO BID PRN PRN Reason: Constipation Sertraline HCl (Zoloft) 100 mg PO DAILY [facility] Last Admin: 12/25/19 08:38 Dose: 100 mg Sodium Chloride (Flush - Normal Saline) 10 ml IVF PRN PRN PRN Reason: Saline Flush Vital Signs & Weight: Vital Signs Temp Pulse Resp BP Pulse Ox 12/25/19 12:09 97.8 F 57 L 14 146/63 H 98 12/25/19 08:37 96.1 F L 66 16 129/61 97 12/25/19 08:00 97 12/25/19 05:33 97.7 F 62 18 156/66 H 97 Admit Weight 207 lb 9.6 oz Weight 207 lb 9.6 oz - Physical Exam General: alert & oriented x3 HEENT: mucus membranes moist Neck: supple neck Cardiac: regular rate and rhythm Lungs: normal breath sounds Neuro: grossly intact Abdomen: active bowel sounds Extremities: no edema Skin: clear Musculoskeletal: no pain - Labs Result Diagrams: 12/25/19 04:10 12/25/19 04:10 Troponin/CKMB Troponin I 0.011 ng/mL (< 0.028) 12/24/19 04:09 - Telemetry Sinus rhythms and dysrhythmias: sinus rhythm - Assessment/Plan Assessment/Plan: 1. Chronic stable angina. 2. CAD PLAN: - May discharge home on current regimen. - She will follow up with Dr. Mendez in 3-4 weeks.
== END 2019-12-25 17:30 | disposition home or self-care (01) | DRG 303 ==
LOC: 2NO 09:55 → INTOOBSV 09:55 → OBSVTOIN 12:35
PROVIDERS: ADMIT Internal Medicine; ATTEND Internal Medicine
PROC: 5A09357 Assistance with Respiratory Ventilation, Less than 24 Consecutive Hours, Continuous Positive Airway Pressure (ICD-10-PCS; principal; 2019-12-23)
DX: I25.110 Atherosclerotic heart disease of native coronary artery with unstable angina pectoris (principal); I12.9 Hypertensive chronic kidney disease with stage 1 through stage 4 chronic kidney disease, or unspecified chronic kidney disease; E78.5 Hyperlipidemia, unspecified; E66.9 Obesity, unspecified; N18.2 Chronic kidney disease, stage 2 (mild); J44.9 Chronic obstructive pulmonary disease, unspecified; F41.9 Anxiety disorder, unspecified; M19.90 Unspecified osteoarthritis, unspecified site; G47.33 Obstructive sleep apnea (adult) (pediatric); Z20.828 Contact with and (suspected) exposure to other viral communicable diseases; Z68.35 Body mass index [BMI] 35.0-35.9, adult; Z95.1 Presence of aortocoronary bypass graft; Z95.5 Presence of coronary angioplasty implant and graft; Z87.891 Personal history of nicotine dependence; Z79.899 Other long term (current) drug therapy; Z79.02 Long term (current) use of antithrombotics/antiplatelets; Z79.82 Long term (current) use of aspirin
CPT/HCPCS: 36415; 36416; 80048; 80061; 83735; 84484; 85025; 87635; 93005; 93010; J1650; U0003